=== PATIENT | male | born 1965 | race Caucasian/White ===

== ENCOUNTER 2017-12-25 10:34 | Day surgery (SDC) | payer BC ==
[~2017-12-25] VITALS: Ht 172.7 cm; Wt 76.7 kg
[~2017-12-25 10:34] MED LIST: ATOR20TA58 PO; FLUT9.9S NS; HYDROmorphone 2 MG/ML VIAL IV PRN; IV RINGERS,LACTATED 1000ML 1,000 ML IV SCH; LIDOCAINE 1% PF 2 ML VIAL. ID PRN; METF10007 PO; ONDANSETRON PF 4 MG/2 ML VIAL. IV PRN; PROCHLORPERAZINE 10 MG/2 ML VIAL. IV PRN; fentaNYL PF VIAL 100 MCG/2 ML VIAL IV PRN
[2017-12-25] MEDS ORDERED: BUPIVAC MPF-EPI 0.5%-1:200000 30 ML VIAL. ONE (11:37)
[2017-12-25] MEDS ORDERED: PROPOFOL 100 ML IV ONE (12:53)
[2017-12-25] MEDS ORDERED: LIDOCAINE 2% PF Vial for OR 5 ML VIAL. ONE (12:53)
[2017-12-25] MEDS ORDERED: ROCURONIUM 50 MG/5 ML VIAL. ONE (12:54)
[2017-12-25] MEDS ORDERED: fentaNYL PF VIAL 100 MCG/2 ML VIAL ONE (12:54)
[2017-12-25] MEDS ORDERED: DEXAMETHASONE SOD PHOS 20 MG/5 ML VIAL. ONE (13:03)
[2017-12-25] MEDS ORDERED: FAMOTIDINE 20 MG/2 ML VIAL ONE (13:04)
[2017-12-25] MEDS ORDERED: ONDANSETRON PF 4 MG/2 ML VIAL. ONE (14:25)
[2017-12-25] MEDS ORDERED: GLYCOPYRROLATE 1 MG/5 ML VIAL. ONE (14:28)
[2017-12-25] MEDS ORDERED: NEOSTIGMINE METHYLSULFATE 5 MG/5 ML SYRINGE. ONE (14:28)
[2017-12-25] MEDS ORDERED: SEVOFLURANE 61 TO 120 MINUTES. IH ONE (14:38)
--- NOTE | 2017-12-25 14:39 | PDOC4 ---
Operative Note Operative Note Date: 12/25/2017 Preoperative diagnosis: Right inguinal hernia and umbilical hernia Postoperative diagnosis: Same Procedure: Robotic-assisted laparoscopic right inguinal hernia repair and open umbilical hernia repair Surgeon: Nomi Specimen: Umbilical hernia sac and contents Dictation: Patient is a 52-year-old male who's had a bulge in his right groin with some pain I believe an ultrasound of the area showed a small inguinal hernia he also has complaints of a bulge at his umbilicus. Procedure of robotic- assisted laparoscopic right inguinal hernia repair with mesh was explained to the patient detail was benefits were also discussed including bleeding infection alternatives to this procedure also discussed with patient seemed understanding as well as repair of umbilical hernia was also discussed the patient seemed understanding gave both verbal and written consent had procedure performed. Patient was taken to the operating room placed in the supine position general anesthesia was initiated once patient was asleep and intubated is placed in low lithotomy positioning and his abdomen was prepped and draped usual sterile fashion using ChloraPrep. An area just above the umbilicus injected quarter percent Marcaine with epinephrine incisions made lead blade scalpel and a varies needle was placed within the abdomen creating pneumoperitoneum once this was complete a da Sidney 8 mm port was placed and the da Sidney camera was placed within the abdomen which was inspected no other at maladies were noted other than a right inguinal hernia which was small but present. At this point 2 more da Sidney 8 mm ports were placed one in the right mid abdomen one in the left mid abdomen. Then she robot was brought in and docked to all port sites surgeon went to the robotic console using grasper and Endo Lui the peritoneum over the right inguinal floor was opened with an the hernia sac and contents were reduced a right sided Bard 3-D max mesh medium size was placed over the hernia defect in the floor the pelvis. The peritoneum was then closed over the mesh with a running 20V lock suture. The da Sidney robot was undocked all ports removed surgeon returned to the operative field using electrocautery the helical hernia sac was excised with its contents and the fascia closed with a [id number] 0 Vicryl's suture. Port sites were all closed 4 septic or Monocryl mass all Steri-Strips and Band-Aids were applied as dressings. Patient was waken expanded in the operating room taken recovery in stable condition all sponge instrument needle counts listed as correct estimated blood loss 5 mL PHILLIP HILLS MD Dec 25, 2017 14:39
--- NOTE | 2017-12-25 14:40 | DISCH ---
DISCHARGE INSTRUCTIONS Condition on Discharge Condition on Discharge: Stable Activity After Discharge Activity Instructions for Disc: Avoid exertion Other activity instructions: no lifting more than 20 pounds for 2 weeks Diet after Discharge Diet after Discharge: Regular Wound Incision Care Other wound/incision instructi: May shower in 24 hours Contacting the DRHoang after DC Call your doctor for: If your condition worsens Follow-Up Follow up with: Dr. Hills in 2 weeks PHILLIP HILLS MD Dec 25, 2017 14:40
[2017-12-25] MEDS: fentaNYL PF VIAL 100 MCG/2 ML VIAL IV PRN ×2 (15:12→15:30)
[2017-12-25] MEDS ORDERED: oxyCODONE/APAP 5/325 1 TAB TABLET PO ONE (15:30)
[2017-12-25] MEDS ORDERED: OXYC-323 PO (15:33)
[2017-12-25] MEDS: MORPHINE SULFATE 2 MG/ML VIAL. IV PRN ×2 (15:59→16:14)
[2017-12-25 16:45] VITALS: BP 144/88
--- NOTE | 2017-12-28 13:09 | PATHOLOGY ---
[facility] Accession Number: [id number] . 01 Material submitted: . UMBILICAL HERNIA CONTENTS . 01 Clinician provided ICD-10: K42.9 . 01 Clinical history: . Umbilical hernia . 02 Diagnosis: "Umbilical hernia contents", herniorrhaphy: - Hernia sac. . (SKM:salad bar clerk; 12/27/2017) MBR/12/27/2017 . 02 Electronically signed: . Jayson Gross MD, Pathologist NPI- [id number] . 01 Gross description: . The specimen is received in formalin, labeled "Joe Zaldivar, umbilical hernia contents". Received is a segment of fibroadipose tissue measuring 3.2 x 2.8 x 1.8 cm in greatest dimensions. Sectioning reveals bright yellow, lobulated cut surfaces throughout with no grossly distinct nodules or lesions. The specimen is submitted representatively in cassette A1. (CAA; 12/26/2017) QAC/QAC . 02 Pathologist provided ICD-10: K42.9 . 02 CPT . 682860 Specimen Comment: A courtesy copy of this report has been sent to Specimen Comment: [phone], . Specimen Comment: Report sent to / DR DOAN Specimen Comment: A duplicate report has been generated due to demographic updates. Performed at: 01 [facility] [address], [place] [id number] MD Waylon Mcclellan MD Phone: [phone] Performed at: 02 [facility] [address] [place], [place] [id number] MD Dick Montanez MD Phone: [phone]
== END 2017-12-25 17:25 | disposition home or self-care (01) ==
LOC: SURG 10:34
PROVIDERS: ATTEND Surgery
DX: K40.90 Unilateral inguinal hernia, without obstruction or gangrene, not specified as recurrent (principal); K42.9 Umbilical hernia without obstruction or gangrene; E11.9 Type 2 diabetes mellitus without complications; E78.5 Hyperlipidemia, unspecified; Z79.84 Long term (current) use of oral hypoglycemic drugs; Z83.3 Family history of diabetes mellitus; Z82.49 Family history of ischemic heart disease and other diseases of the circulatory system; F17.210 Nicotine dependence, cigarettes, uncomplicated; Z72.89 Other problems related to lifestyle; Z79.899 Other long term (current) drug therapy
CPT/HCPCS: 49585; 49650; 82962; C1781; J0690; J0780; J1100; J2001; J2270; J2405; J2704; J2710; J3010; J3490; J7120; S2900; 88302

== ENCOUNTER 2018-09-27 22:24 | Emergency (ER) | payer BC ==
[~2018-09-27] VITALS: Ht 170.2 cm; Wt 79.4 kg
[~2018-09-27 22:24] MED LIST changes: -HYDROmorphone 2 MG/ML VIAL IV PRN; -IV RINGERS,LACTATED 1000ML 1,000 ML IV SCH; -LIDOCAINE 1% PF 2 ML VIAL. ID PRN; -ONDANSETRON PF 4 MG/2 ML VIAL. IV PRN; +OXYC1TAB15 PO; -PROCHLORPERAZINE 10 MG/2 ML VIAL. IV PRN; -fentaNYL PF VIAL 100 MCG/2 ML VIAL IV PRN
[2018-09-27] MEDS ORDERED: DIPHTH,PERTUSS(ACELL),TET TOX 0.5 ML DISP.SYRIN. VAX IM ONE ×2 (23:29→23:45)
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
== END 2018-09-27 23:40 | disposition left against medical advice (07) ==
LOC: ER 22:24 → EEVIPCON 22:24 → ER 23:40
DX: S09.90XA Unspecified injury of head, initial encounter (principal); E78.00 Pure hypercholesterolemia, unspecified; E11.9 Type 2 diabetes mellitus without complications; W51.XXXA Accidental striking against or bumped into by another person, initial encounter; Y93.89 Activity, other specified; Y92.524 Gas station as the place of occurrence of the external cause; Y99.8 Other external cause status
CPT/HCPCS: 90471; 90715; 99283

== ENCOUNTER → 2021-06-29 | Day surgery (SDC) | payer BC ==
[~2021-06-29] VITALS: Ht 172.7 cm; Wt 84.0 kg
[~2021-06-29] MED LIST changes: +GLIM1TAB7 PO; +IV RINGERS,LACTATED 1000ML 1,000 ML IV SCH; +LISI10TA16 PO; +PROPOFOL 10 MG/ML (20ML) VIAL. IV ONE
[2021-06-29 06:38] VITALS: BP 126/92
--- NOTE | 2021-06-29 07:10 | PDOC2 ---
CONSULT Date of Consult Date of Consult DATE: 06/29/21 TIME: 07:06 Reason for Consult Reason for Consult: History of colon polyps History of Present Illness Reason for Visit: 56 year old Male is seen for interval colonoscopy. Bowel habits are regular without diarrhea or constipation. No melena and/or hematochezia is present. Weight and appetite are stable. He otherwise is without additional complaints. Past Medical History Endocrine: Diabetes, Other (Hyperlipidemia) Past Surgical History Past Surgical History: Hernia Repair, Other (vasectomy) Family History Family History: Diabetes, Hypertension Social History 1 pack per day ALCOHOL: social Current Medications Current Medications Current Medications Ringer's Solution 1,000 ml @ 75 mls/hr [id number] IV Last administered on 06/29/21at 07:00; Start 06/29/21 at 07:00; Stop 06/30/21 at 06:59 Active Scripts Active Reported Glimepiride 1 Mg Tablet 1 Tab PO DAILY Lisinopril 10 Mg Tablet 1 Tab PO DAILY Metformin Hcl 1,000 Mg Tablet 1,000 Mg PO [id number] Atorvastatin Calcium 20 Mg Tablet 1 Tab PO DAILY Allergies Allergies: Coded Allergies: No Known Drug Allergies (Unverified , 06/29/21) ROS Musculoskeletal: Yes Joint Pain Physical Exam General: Alert, Oriented X3 Lungs: Clear to auscultation Heart: Normal S1, Normal S2 Abdomen: Normal bowel sounds, Soft, No tenderness Vitals VITALS Vital Signs Date Time Temp Pulse Resp B/P (MAP) Pulse Ox O2 Delivery O2 Flow Rate FiO2 06/29/21 06:38 98.0 77 18 97 98.0 Assessment/Plan Assessment/Plan History of colon polyps- surveillance exam is recommended at this time. R/B have been discussed with patient who is willing to proceed. BEVERLY SIMMS MD June 29, 2021 07:10
[2021-06-29 08:13] VITALS: BP 144/62
== END | disposition home or self-care (01) ==
LOC: ENDOS 06:15
PROVIDERS: ATTEND Internal Medicine Gastroenterology
DX: Z12.11 Encounter for screening for malignant neoplasm of colon (principal); K64.0 First degree hemorrhoids; K63.5 Polyp of colon; K63.89 Other specified diseases of intestine; I10 Essential (primary) hypertension; E78.00 Pure hypercholesterolemia, unspecified; E11.9 Type 2 diabetes mellitus without complications; M19.90 Unspecified osteoarthritis, unspecified site; F17.210 Nicotine dependence, cigarettes, uncomplicated; Z79.84 Long term (current) use of oral hypoglycemic drugs; Z86.010 Personal history of colon polyps; Z79.899 Other long term (current) drug therapy; Z98.890 Other specified postprocedural states; Z72.89 Other problems related to lifestyle
CPT/HCPCS: 45385; 88305; J2704; 45380